=== PATIENT | female | born 1985 | race Two or more races ===

== ENCOUNTER 2024-10-05 08:30 | Inpatient (IN) | payer MEDICAID, OTHER ==
[~2024-10-05] VITALS: Ht 152.4 cm; Wt 81.7 kg
--- NOTE | 2024-10-05 09:41 | ED.PDOC ---
GI ASSESSMENT HPI Comments 39 y/o F, presents to the ED for CC of GI Bleed. Patient states, she has been experiencing bright red bloody stool with associated symptoms of suprapubic abdominal cramping x2days. Patient reports, that bleeding quality has lighted however, has not yet ceased. Patient comments, that she received a colonoscopy [id number] ago which was unremarkable. Patient denies dysuria, nausea, vomiting, or diarrhea. No other symptoms or modifying factors present at this time. Chief Complaint: GI Bleed Time Seen by MD: 09:20 Reviewed Notes: Nurses Notes, Medications, Allergies Allergies: Coded Allergies: NO KNOWN ALLERGIES (Unverified , 10/05/24) Mode of Arrival: Ambulatory Timing: Days Duration: Since onset Prehospital treatment: None Quality: Cramping Vomitus: None Stool: Blood Streaked Severity: Moderate Recent: None Recent Hx of: None Pain Location: Suprapubic Modifying Factors: Nothing Associated sign and symptoms: Abdominal Pain, Blood in Stool Past Medical History PAST MEDICAL HISTORY: Denies Surgical History: Denies all surgeries IRONER HAND History: Denies all IRONER HAND Hx Family History Family History: Unknown Social History Smoker: Non-Smoker Alcohol: Denies ETOH Use Drugs: Denies Drug Use Lives In: Home Constitutional: denies: chills, diaphoresis, fatigue, fever, malaise, sweats, weakness, others EENTM: denies: blurred vision, double vision, ear bleeding, ear discharge, ear drainage, ear pain, ear ringing, eye pain, eye redness, hearing loss, mouth pain, mouth swelling, nasal discharge, nose bleeding, nose congestion, nose pain, photophobia, tearing, throat pain, throat swelling, voice changes, others Respiratory: denies: cough, hemoptysis, orthopnea, SOB at rest, shortness of breath, SOB with excertion, stridor, wheezing, others Cardiovascular: denies: chest pain, dizzy spells, diaphoresis, Dyspnea on exertion, edema, irregular heart beat, left arm pain, lightheadedness, palpitations, PND, syncope, others Gastrointestinal: reports: abdominal pain, blood streaked bowels; denies: abdomen distended, constipated, diarrhea, dysphagia, difficulty swallowing, hematemesis, melena, nausea, poor appetite, poor fluid intake, rectal bleeding, rectal pain, vomiting, others Genitourinary: denies: abnormal vagina bleeding, burning, dyspareunia, dysuria, flank pain, frequency, hematuria, incontinence, pain, , vagina discharge, urgency, others Neurological: denies: dizziness, fainting, headache, left sided numbness, left sided weakness, numbness, paresthesia, pre-existing deficit, right sided numbness, right sided weakness, seizure, speech problems, tingling, tremors, weakness, others Musculoskeletal: denies: back pain, gout, joint pain, joint swelling, muscle pain, muscle stiffness, neck pain, others Integumetry: denies: bruises, change in color, change in hair/nails, dryness, laceration, lesions, lumps, rash, wounds, others Allergic/Immunocompromised: denies: Difficulty Healing, Frequent Infections, Hives, Itching, others Hematologic/Lymphatic: denies: anemia, blood clots, easy bleeding, easy bruising, swollen glands, others Endocrine: denies: excessive hunger, excessive sweating, excessive thirst, excessive urination, flushing, intolerance to cold, intolerance to heat, unexplained weight gain, unexplained weight loss, others Psychiatric: denies: anxiety, bipolar disorder, depression, hopeless, panic disorder, schizophrenia, sleepless, suicidal, others All Other Systems: Reviewed and Negative Physical Exam General Appearance: No Apparent Distress, Normal HEENT: Normal ENT Inspection, Pharynx Normal Neck: Full Range of Motion, Non-Tender, Normal, Normal Inspection Respiratory: Chest Non-Tender, Lungs Clear, No Accessory Muscle Use, No Respiratory Distress, Normal Breath Sounds Cardiovascular: No Edema, No Murmur, No Gallop, Normal Peripheral Pulses, Regular Rate/Rhythm Breast Exam: Deferred Gastrointestinal: No Organomegaly, Non Tender, No Pulsatile Mass, Normal Bowel Sounds, Soft Genitalia: Deferred Pelvic: Deferred Rectal: Deferred Extremities: No calf tenderness, Normal capillary refill, Normal inspection, Normal range of motion, Non-tender, No pedal edema Musculoskeletal : Apperance: Normal Neurologic: Alert, resistor winder II-XII nml as Tested, No Motor Deficits, Normal Affect, Normal Mood, No Sensory Deficits Cerebellar Function: Normal Reflexes: Normal Skin: Dry, Normal Color, Warm Lymphatic: No Adenopathy Was a procedure done? Was a procedure done?: No GI differential Dx Differential Diagnosis: Diverticular disease, Gastritis/PUD, Gastroenteritis, GI hemorrhage, Inflammatory BD X-Ray, Labs, Meds, VS Vital Signs Date Time Temp Pulse Resp B/P (MAP) Pulse Ox O2 Delivery O2 Flow Rate FiO2 10/05/24 11:12 75 18 143/85 10/05/24 10:42 75 17 143/85 10/05/24 10:36 97.8 75 17 143/85 (104) 100 97.8 10/05/24 10:26 18 98 Room Air* 0 21 10/05/24 08:34 98.1 93 13 142/79 99 98.1 Lab Test 10/05/24 10:26 10/05/24 09:40 Range/Units Urine Color Light-yellow Yellow Urine Clarity Clear Clear Urine pH 6.5 5.0-9.0 Urine Specific [place] > 1.050 H 1.001-1.035 Urine Protein Negative Negative Urine Ketones Negative Negative Urine Blood Negative Negative /uL Urine Nitrite Negative Negative Urine Bilirubin Negative Negative Urine Urobilinogen Normal Negative mg/dL Urine Leukocyte Esterase Negative Negative /uL Urine RBC 2 0 - 4 /hpf Urine Microscopic WBC < 1 0-5 /HPF Urine Squamous Epithelial Cells Few <5 /hpf Urine Bacteria None seen None Seen /hpf Urine Glucose Normal Normal mg/dL White Blood Count 6.2 4.4-10.8 10^3/uL Red Blood Count 4.27 4.0-5.20 10^6/uL Hemoglobin 13.5 12.2-16.2 g/dL Hematocrit 39.8 36.0-46.0 % Mean Corpuscular Volume 93.1 80.0-100.0 fL Mean Corpuscular Hemoglobin 31.6 28.0-32.0 pg Mean Corpuscular Hemoglobin Concent 34.0 32.0-36.0 g/dL Red Cell Distribution Width 13.1 11.8-14.3 % Platelet Count 197 140-450 10^3/uL Mean Platelet Volume 9.1 6.9-10.8 fL Neutrophils (%) (Auto) 59.6 37.0-80.0 % Lymphocytes (%) (Auto) 28.3 10.0-50.0 % Monocytes (%) (Auto) 6.7 0.0-12.0 % Eosinophils (%) (Auto) 4.7 0.0-7.0 % Basophils (%) (Auto) 0.7 0.0-2.0 % Neutrophils # (Auto) 3.7 1.6-8.6 10 ^3/uL Lymphocytes # (Auto) 1.8 0.4-5.4 10 ^3/uL Monocytes # (Auto) 0.4 0-1.3 10 ^3/uL Eosinophils # (Auto) 0.3 0-0.8 10 ^3/uL Basophils # (Auto) 0 0-0.2 10 ^3/uL Nucleated Red Blood Cells 0.0 % Sodium Level 139 136-145 mmol/L Potassium Level 4.0 3.5-5.1 mmol/L Chloride Level 105 98-107 mmol/L Carbon Dioxide Level 28 20-31 mmol/L Anion Gap 6 5-15 Blood Urea Nitrogen 8 L 9-23 mg/dL Creatinine 0.79 0.550-1.02 mg/dL Glomerular Filtration Rate Calc 99 >90 mL/min BUN/Creatinine Ratio 10.1 10.0-20.0 Serum Glucose 86 74-106 mg/dL Calcium Level 9.0 8.7-10.4 mg/dL Current Medications Medications (Trade) Dose Ordered Sig/Otilia Route Start Time Stop Time Status Last Admin Sodium Chloride 1,000 ml @ 1,000 mls/hr Q1H ONCE IV 10/05/24 09:30 10/05/24 10:29 DC 10/05/24 10:40 Ondansetron HCl (Zofran) 4 mg ONCE ONCE IV 10/05/24 09:30 10/05/24 09:31 DC 10/05/24 10:42 Morphine Sulfate 4 mg ONCE ONCE IV 10/05/24 09:30 10/05/24 09:31 DC 10/05/24 10:42 Pantoprazole Sodium (Protonix) 80 mg ONCE ONCE IV 10/05/24 09:30 10/05/24 09:31 DC 10/05/24 10:42 [place] [address] Ph: [phone] DIAGNOSTIC IMAGING Diagnostic Imaging Report : [id number] Signed PATIENT: JOANNE JIMENEZ ACCT: [id number] UNIT: [id number] : 1985 LOC: ER ROOM / BED: / AGE / SEX: 39 / F ADM STATUS: REG ER SERVICE 7 ORDERING PHYSICIAN: EDWIGE MENDOZA MD PROCEDURE(s): ABPLIV - CT AB PEL WITH IV CON ONLY REASON: abdominal pain ORDER NUMBER(s): [id number], ACCESSION NUMBER(s): [id number] Exam: CT CT AB PEL WITH IV CON ONLY History: abdominal pain COMPARISON: None Technique: Multidetector spiral CT of the abdomen and pelvis was performed from lung bases to pubic symphysis. Intravenous contrast was administered during this examination. Portal venous imaging was obtained. Axial, coronal and sagittal multiplanar reformats were performed by the technologist on a separate workstation. Radiation Dose : 1. Abdomen/Pelvis: CTDIvol 12.41mGy, DLP 599.62 mGy*cm. Findings: Lung Bases: No acute or significant lung base finding. Normal heart size. No pleural or pericardial effusion. Liver: Hepatomegaly. Gallbladder and Biliary Tree: Unremarkable Spleen: Unremarkable Pancreas: The pancreas is normal in appearance without focal lesions or abnormal enhancement. Adrenal Glands: Unremarkable Kidneys: No hydronephrosis. Bladder: Unremarkable Bowel: The stomach is grossly normal in appearance. Moderate colonic stool. Normal appendix is visualized in the right lower quadrant without findings of appendicitis. Ascites: Absent Lymphadenopathy: No mesenteric, retroperitoneal or periportal lymphadenopathy. Abdominal Wall and Mesentery: Unremarkable. Vasculature: The visualized abdominal aorta is normal in size and caliber. Abdominal and pelvic vessels demonstrate normal enhancement. Pelvic Organs: Intrauterine device in satisfactory position. Musculoskeletal: No aggressive focal bony lesions, acute fractures or dislocation. IMPRESSION: No acute abdominal or pelvic finding. Radiation optimization: All CT scans at this facility use at least one of these dose optimization techniques: automated exposure control mA and/or kV adjustment per patient size (includes targeted exams where dose is matched to clinical indication) or iterative reconstruction. ATED BY: ARMIN YUEN MD DICTATED DATE/TIME: 10/05/241115 SIGNED BY: ARMIN YUEN MD SIGNED DATE/TIME: 10/05/24 111 CC: Time of 1ST Reevaluation: 09:50 Reevaluation 1ST: Unchanged Patient Education/Counseling: Diagnosis, Treatment Family Education/Counseling: No Family Present SEPSIS Sepsis Screen Date sepsis recognized/suspect: Oct 05, 2024 Time Sepsis recognized/suspect: 0834 Recent Procedure: No On Antibiotic Therapy: No Respiratory Rate >20: No Heart Rate >90: Yes Temp<36 C (96.8 F) or >38.3 C: No SBP <90 or MAP <65 mmHG: No New Acute Mental Status Change: No Is the patient on CPAP, BIPAP,: No Physician Orders Ct Ab Pel With Iv Con Only (10/05/24 09:18) Vital Signs Date Time Temp Pulse Resp B/P (MAP) Pulse Ox O2 Delivery O2 Flow Rate FiO2 10/05/24 11:12 75 18 143/85 10/05/24 10:42 75 17 143/85 10/05/24 10:36 97.8 75 17 143/85 (104) 100 97.8 10/05/24 10:26 18 98 Room Air* 0 21 10/05/24 08:34 98.1 93 13 142/79 99 98.1 Laboratory Tests Test 10/05/24 09:40 White Blood Count 6.2 10^3/uL (4.4-10.8) Medications Medications Dose Ordered Sig/Otilia Route Start Time Stop Time Status Last Admin Dose Admin Morphine Sulfate 4 mg ONCE ONCE IV 10/05/24 09:30 10/05/24 09:31 DC 10/05/24 10:42 Ondansetron HCl 4 mg ONCE ONCE IV 10/05/24 09:30 10/05/24 09:31 DC 10/05/24 10:42 Pantoprazole Sodium 80 mg ONCE ONCE IV 10/05/24 09:30 10/05/24 09:31 DC 10/05/24 10:42 Sodium Chloride 1,000 ml @ 1,000 mls/hr Q1H ONCE IV 10/05/24 09:30 10/05/24 10:29 DC 10/05/24 10:40 Departure 1 Departure Time of Disposition: 17:26 (Patient with GI bleed. We will admit patient for further workup and expert consultation) Impression: Primary Impression: Bright red blood per rectum Additional Impression: Generalized weakness Disposition: ADMITTED INPATIENT Admit to: [facility] Condition: Guarded Critical Care Note Critical Care Time?: Yes Critical care comment: GI bleed Authorized and Performed by: Edwige Mendoza MD Total critical care time: Approximately 37 minutes Due to a high probability of clinically significant, life threatening deterioration, the patient required my highest level of preparedness to intervene emergently and I personally spent this critical care time directly and personally managing the patient. This critical care time included obtaining a history; examining the patient; pulse oximetry; ordering and review of studies; arranging urgent treatment with development of a management plan; evaluation of patient's response to treatment; frequent reassessment; and, discussions with other providers. This critical care time was performed to assess and manage the high probability of imminent, life-threatening deterioration that could result in multi-organ failure. It was exclusive of separately billable procedures and treating other patients and teaching time. Please see my other sections and the rest of the note for further information on patient assessment and treatment. Stability Stability form required: No Heart Score Heart Score: Heart Score Response (Comments) Value History N/A 0 EKG N/A 0 Age N/A 0 Risk Factors N/A 0 Troponin N/A 0 Total 0 I personally scribed for EDWIGE MENDOZA MD ([email or web address]) on 10/05/24 at 09:41. Electronically submitted by Tatiana Weinberg ([email or web address]). I personally scribed for EDWIGE MENDOZA MD ([email or web address]) on 10/05/24 at 11:21. Electronically submitted by Tatiana Weinberg ([email or web address]). EDWIGE MENDOZA MD Oct 05, 2024 09:41
[2024-10-05 10:14] LABS: Hematocrit 39.8 % (36.0-46.0); Hemoglobin 13.5 g/dL (12.2-16.2); Mean Corpuscular Hemoglobin 31.6 pg (28.0-32.0); Mean Corpuscular Volume 93.1 fL (80.0-100.0); Nucleated Red Blood Cells % 0.0 %
[2024-10-05 10:17] LABS: Chloride 105 mmol/L (98-107); Potassium 4.0 mmol/L (3.5-5.1); Sodium 139 mmol/L (136-145)
[2024-10-05 10:18] LABS: Anion Gap 6 (5-15); Carbon Dioxide 28 mmol/L (20-31)
[2024-10-05 10:19] LABS: Calcium 9.0 mg/dL (8.7-10.4)
[2024-10-05 10:24] LABS: BUN/Creatinine Ratio 10.1 (10.0-20.0); Glucose 86 mg/dL (74-106)
[2024-10-05 10:25] LABS: Blood Urea Nitrogen 8 mg/dL (9-23)
[2024-10-05 10:26] VITALS: RESP 18; O2SAT 98
[2024-10-05] MEDS: SODIUM CHLORIDE 0.9% 1,000 ML IV ONE (10:40)
[2024-10-05] MEDS: PANTOPRAZOLE 40 MG/10 ML VIAL INJ IV ONE (10:42)
[2024-10-05] MEDS: MORPHINE SULFATE 4 MG/ML SYR/VIAL IV ONE (10:42)
[2024-10-05] MEDS: ONDANSETRON HCL 4 MG/2 ML VIAL IV ONE (10:42)
--- NOTE | 2024-10-05 11:19 | DVH ---
Exam: CT CT AB PEL WITH IV CON ONLY History: abdominal pain COMPARISON: None Technique: Multidetector spiral CT of the abdomen and pelvis was performed from lung bases to pubic s ymphysis. Intravenous contrast was administered during this examination. Portal venous imaging was o btained. Axial, coronal and sagittal multiplanar reformats were performed by the technologist on a [employer] computer workstation. Radiation Dose : 1. Abdomen/Pelvis: CTDIvol 12.41mGy, DLP 599.62 mGy*cm. Findings: Lung Bases: No acute or significant lung base finding. Normal heart size. No pleural or pericardial effusion. Liver: Hepatomegaly. Gallbladder and Biliary Tree: Unremarkable Spleen: Unremarkable Pancreas: The pancreas is normal in appearance without focal lesions or abnormal enhancement. Adrenal Glands: Unremarkable Kidneys: No hydronephrosis. Bladder: Unremarkable Bowel: The stomach is grossly normal in appearance. Moderate colonic stool. Normal appendix is visual ized in the right lower quadrant without findings of appendicitis. Ascites: Absent Lymphadenopathy: No mesenteric, retroperitoneal or periportal lymphadenopathy. Abdominal Wall and Mesentery: Unremarkable. Vasculature: The visualized abdominal aorta is normal in size and caliber. Abdominal and pelvic vess els demonstrate normal enhancement. Pelvic Organs: Intrauterine device in satisfactory position. Musculoskeletal: No aggressive focal bony lesions, acute fractures or dislocation. IMPRESSION: No acute abdominal or pelvic finding. Radiation optimization: All CT scans at this facility use at least one of these dose optimization maricarmen hniques: automated exposure control mA and/or kV adjustment per patient size (includes targeted exam s where dose is matched to clinical indication) or iterative reconstruction.
[2024-10-05 13:19] LABS: Urine Protein, UAD Negative (Negative)
[2024-10-05] MEDS ORDERED: ONDANSETRON HCL 4 MG/2 ML VIAL IV PRN (16:15)
[2024-10-05] MEDS ORDERED: ACETAMINOPHEN 325 MG TAB PO PRN (16:15)
[2024-10-05] MEDS: SODIUM CHLORIDE 0.9% 1,000 ML IV SCH (16:15)
[2024-10-05] MEDS ORDERED: METOCLOPRAMIDE HCL 5MG/ml INJ 2ml VIAL IV PRN (16:30)
--- NOTE | 2024-10-05 16:43 | DVHHP2 ---
History of Present Illness Reason for Visit: blood in stool History of Present Illness Anne-Marie Robles is a 39-year-old female with no significant past medical history who came to the hospital for blood in her stool. Patient states it started on Friday. She states she had 2 bowel movements that had bright red blood, on Friday she had 1 and today she has not had any. She also states that she is experiencing nausea, and abdominal pain that has been worsening over the last few days. Past Surgical History: (x 2), Other (abdominal surgery to remove scar tissue from the previous C-sections. ) Smoke: <1 pack per day (Vape) ALCOHOL: rare Drugs: Marijuana Lives: with Family Domestic Violence: Neg Review of Systems Constitutional: No: Fever, Chills, Sweats, Weakness, Malaise, Other Eyes: No: Pain, Vision change, Conjunctivae inflammation, Eyelid inflammation, Other, Redness ENT: No: Ear pain, Ear discharge, Nose pain, Nose discharge, Nose congestion, Mouth pain, Mouth swelling, Throat pain, Throat swelling, Other Respiratory: No: Cough, Dry, Shortness of breath, SOB with excertion, Wheezing, Hemoptysis, Pleuritic Pain, Sputum, Wheezing, Other Cardiovascular: No: Chest Pain, Palpitations, Orthopnea, Paroxysmal Noc. Dyspnea, Edema, Lt Headedness, Other Gastrointestinal: Abdominal Pain, Other (bright red blood in stool); No: Nausea, Vomiting, Diarrhea, Constipation, Melena, Hematochezia Genitourinary: No Dysuria, No Frequency, No Incontinence, No Hematuria, No Retention, No Other Musculoskeletal: No: other, neck pain, shoulder pain, arm pain, back pain, hand pain, leg pain, foot pain Skin: No: Rash, Lesions, Jaundice, Bruising, Other Neurological: No: Weakness, Numbness, Incoordination, Change in speech, Con fusion, Seizures, Other Allergies: Coded Allergies: NO KNOWN ALLERGIES (Unverified , 10/05/24) Medications Current Medications Medications Dose Ordered Sig/Otilia Route Start Time Stop Time Status Last Admin Dose Admin Sodium Chloride 1,000 ml @ 75 mls/hr [id number] IV 10/05/24 16:15 Acetaminophen/ Hydrocodone Bitart 1 tab Q4HP PRN PO 10/05/24 16:15 Ondansetron HCl 4 mg Q4HP PRN IV 8/12/25 16:15 Acetaminophen 650 mg Q6HP PRN PO 10/05/24 16:15 Morphine Sulfate 2 mg Q4HPRN PRN IV 10/05/24 16:15 Exam Vital Signs Vital Signs Date Time Temp Pulse Resp B/P (MAP) Pulse Ox O2 Delivery O2 Flow Rate FiO2 10/05/24 11:12 75 18 143/85 10/05/24 10:36 97.8 100 97.8 10/05/24 10:26 Room Air* 0 21 General Appearance: Alert, Oriented X3, Cooperative, mild distress HEENT: Atraumatic, PERRLA Respiratory: Clear to auscultation, Normal air movement Cardiovascular: Regular rate, Normal S1, Normal S2, No murmurs Abdominal: Normal bowel sounds, Soft, Other (abdominal pain) Extremities: No clubbing, No cyanosis, No edema, Normal pulses, No tende rness/swelling Skin: No rashes, No breakdown, No significant lesion Neuro: Normal gait, Normal speech, Strength at 5/5 X4 ext, Normal tone Psych/Mental Status: Mental status NL, Mood NL Labs/Xrays Labs Test 10/05/24 10:26 10/05/24 09:40 Range/Units Urine Color Light-yellow Yellow Urine Clarity Clear Clear Urine pH 6.5 5.0-9.0 Urine Specific [place] > 1.050 H 1.001-1.035 Urine Protein Negative Negative Urine Ketones Negative Negative Urine Blood Negative Negative /uL Urine Nitrite Negative Negative Urine Bilirubin Negative Negative Urine Urobilinogen Normal Negative mg/dL Urine Leukocyte Esterase Negative Negative /uL Urine RBC 2 0 - 4 /hpf Urine Microscopic WBC < 1 0-5 /HPF Urine Squamous Epithelial Cells Few <5 /hpf Urine Bacteria None seen None Seen /hpf Urine Glucose Normal Normal mg/dL White Blood Count 6.2 4.4-10.8 10^3/uL Red Blood Count 4.27 4.0-5.20 10^6/uL Hemoglobin 13.5 12.2-16.2 g/dL Hematocrit 39.8 36.0-46.0 % Mean Corpuscular Volume 93.1 80.0-100.0 fL Mean Corpuscular Hemoglobin 31.6 28.0-32.0 pg Mean Corpuscular Hemoglobin Concent 34.0 32.0-36.0 g/dL Red Cell Distribution Width 13.1 11.8-14.3 % Platelet Count 197 140-450 10^3/uL Mean Platelet Volume 9.1 6.9-10.8 fL Neutrophils (%) (Auto) 59.6 37.0-80.0 % Lymphocytes (%) (Auto) 28.3 10.0-50.0 % Monocytes (%) (Auto) 6.7 0.0-12.0 % Eosinophils (%) (Auto) 4.7 0.0-7.0 % Basophils (%) (Auto) 0.7 0.0-2.0 % Neutrophils # (Auto) 3.7 1.6-8.6 10 ^3/uL Lymphocytes # (Auto) 1.8 0.4-5.4 10 ^3/uL Monocytes # (Auto) 0.4 0-1.3 10 ^3/uL Eosinophils # (Auto) 0.3 0-0.8 10 ^3/uL Basophils # (Auto) 0 0-0.2 10 ^3/uL Nucleated Red Blood Cells 0.0 % Sodium Level 139 136-145 mmol/L Potassium Level 4.0 3.5-5.1 mmol/L Chloride Level 105 98-107 mmol/L Carbon Dioxide Level 28 20-31 mmol/L Anion Gap 6 5-15 Blood Urea Nitrogen 8 L 9-23 mg/dL Creatinine 0.79 0.550-1.02 mg/dL Glomerular Filtration Rate Calc 99 >90 mL/min BUN/Creatinine Ratio 10.1 10.0-20.0 Serum Glucose 86 74-106 mg/dL Calcium Level 9.0 8.7-10.4 mg/dL Exam: CT CT AB PEL WITH IV CON ONLY Findings: Lung Bases: No acute or significant lung base finding. Normal heart size. No pleural or pericardial effusion. Liver: Hepatomegaly. Gallbladder and Biliary Tree: Unremarkable Spleen: Unremarkable Pancreas: The pancreas is normal in appearance without focal lesions or abnormal enhancement. Adrenal Glands: Unremarkable Kidneys: No hydronephrosis. Bladder: Unremarkable Bowel: The stomach is grossly normal in appearance. Moderate colonic stool. Normal appendix is visualized in the right lower quadrant without findings of appendicitis. Ascites: Absent Lymphadenopathy: No mesenteric, retroperitoneal or periportal lymphadenopathy. Abdominal Wall and Mesentery: Unremarkable. Vasculature: The visualized abdominal aorta is normal in size and caliber. Abdominal and pelvic vessels demonstrate normal enhancement. Pelvic Organs: Intrauterine device in satisfactory position. Musculoskeletal: No aggressive focal bony lesions, acute fractures or dislocation. IMPRESSION: No acute abdominal or pelvic finding. SEPSIS Sepsis Screen Date sepsis recognized/suspect: Oct 05, 2024 Time Sepsis recognized/suspect: 1028 Recent Procedure: No On Antibiotic Therapy: No Respiratory Rate >20: No Heart Rate >90: No Temp<36 C (96.8 F) or >38.3 C: No SBP <90 or MAP <65 mmHG: No New Acute Mental Status Change: No Is the patient on CPAP, BIPAP,: No Physician Orders Ct Ab Pel With Iv Con Only (10/05/24 09:18) Admit (10/05/24 16:15) Code Status (10/05/24 16:15) Sodium Chloride 0.9% (10/05/24 16:15) Hydrocodone-Acet 5/325mg Tab ([place] 5/32 (10/05/24 16:15) Ondansetron Hcl (Zofran) (10/05/24 16:15) Complete Blood Count (10/06/24 04:00) Comprehensive Metabolic Panel (10/06/24 04:00) Condition: Serious (10/05/24 16:15) Acetaminophen Tablet (Tylenol Tablet) (10/05/24 16:15) Clear Liq Diet (10/05/24 Dinner) Morphine Sulfate Injection (10/05/24 16:15) * Gi Dvh Heating Mechanic (10/05/24 16:15) Vital Signs Date Time Temp Pulse Resp B/P (MAP) Pulse Ox O2 Delivery O2 Flow Rate FiO2 10/05/24 11:12 75 18 143/85 10/05/24 10:42 75 17 143/85 10/05/24 10:36 97.8 75 17 143/85 (104) 100 97.8 10/05/24 10:26 18 98 Room Air* 0 21 10/05/24 08:34 98.1 93 13 142/79 99 98.1 Laboratory Tests Test 10/05/24 09:40 White Blood Count 6.2 10^3/uL (4.4-10.8) Medications Medications Dose Ordered Sig/Otilia Route Start Time Stop Time Status Last Admin Dose Admin Morphine Sulfate 4 mg ONCE ONCE IV 10/05/24 09:30 10/05/24 09:31 DC 10/05/24 10:42 4 MG Ondansetron HCl 4 mg ONCE ONCE IV 10/05/24 09:30 10/05/24 09:31 DC 10/05/24 10:42 4 MG Pantoprazole Sodium 80 mg ONCE ONCE IV 10/05/24 09:30 10/05/24 09:31 DC 10/05/24 10:42 80 MG Sodium Chloride 1,000 ml @ 1,000 mls/hr Q1H ONCE IV 10/05/24 09:30 10/05/24 10:29 DC 10/05/24 10:40 1,000 MLS/HR Assessment/Plan Assessment/Plan Assessment: GI bleeding, Intractable abdominal pain, Plan: Admit to Med-Surg, GI consult, Clear liquid diet, IV hydration, Pain management, Antiemetics, Mange/Monitor H&H closely, Plan discussed with: Patient My Orders Orders - SUSIE CABALLERO Procedure Category Date Status Time Admit ADMIT 10/05/24 Transmitted 16:15 Code Status CODE 10/05/24 Transmitted 16:15 Sodium Chloride 0.9% PHA 10/05/24 In Process 16:15 Hydrocodone-Acet PHA 10/05/24 In Process 5/325mg Tab (Heber 16:15 Ondansetron Hcl PHA 10/05/24 In Process (Zofran) 16:15 Complete Blood Count LAB 10/06/24 Verified 04:00 Comprehensive LAB 10/06/24 Verified Metabolic Panel 04:00 Condition: Serious KIM 10/05/24 In Process 16:15 Acetaminophen Tablet PHA 10/05/24 In Process (Tylenol Tablet) 16:15 Clear Liq Diet DIET 10/05/24 Transmitted Dinner Morphine Sulfate PHA 10/05/24 In Process Injection 16:15 * Gi Dvh Heating Mechanic CONS 10/05/24 Transmitted 16:15 Date of Service: Oct 05, 2024 Billing Provider: SUSIE CABALLERO Common Visit Codes: 32288-[id number] INP/OBS CARE (MOD) SUSIE CABALLERO Oct 05, 2024 16:43
[2024-10-05 21:00] VITALS: BP 135/79; PULSE 75; RESP 18; TEMP 97.8; O2SAT 100
[2024-10-05] MEDS: MORPHINE SULFATE INJ 2 MG/ml SYRG IV PRN (21:14)
[2024-10-05 21:28] VITALS: PULSE 87; RESP 18; O2SAT 97
[2024-10-06] VITALS (8 sets, daily range): BP systolic 113–141; BP diastolic 60–88; PULSE 66–78; RESP 18–19; TEMP 97.1–98.1; O2SAT 97–100
[2024-10-06 06:04] LABS: Hematocrit 36.9 % (36.0-46.0); Hemoglobin 12.5 g/dL (12.2-16.2); Mean Corpuscular Hemoglobin 31.3 pg (28.0-32.0); Mean Corpuscular Volume 92.7 fL (80.0-100.0); Nucleated Red Blood Cells % 0.0 %
[2024-10-06 06:31] LABS: Albumin 3.6 g/dL (3.2-4.8); Alkaline Phosphatase 76 U/L (46-116); Anion Gap 10 (5-15); BUN/Creatinine Ratio 9.2 (10.0-20.0); Carbon Dioxide 24 mmol/L (20-31); Glucose 82 mg/dL (74-106); Sodium 141 mmol/L (136-145)
[2024-10-06 06:32] LABS: Bilirubin, Total 0.5 mg/dL (0.2-1.0)
[2024-10-06 06:34] LABS: Alanine Aminotransferase < 9 U/L (7-40); Blood Urea Nitrogen 7 mg/dL (9-23); Calcium 8.4 mg/dL (8.7-10.4); Chloride 107 mmol/L (98-107); Potassium 3.3 mmol/L (3.5-5.1); Total Protein 5.6 g/dL (5.7-8.2)
[2024-10-06] MEDS: HYDROcodone-ACET 5/325MG TAB PO PRN (12:19)
--- NOTE | 2024-10-06 15:34 | DVHPN2 ---
Subjective Patient is complaining of blood in his stool x2. Denies any abdominal pain nausea and vomiting. Changes from previous H/P or p: No Changes Eyes: No Pain, No Vision change, No Conjunctivae inflammation, No Eyelid inflammation, No Other, No Redness ENT: No Ear pain, No Ear discharge, No Nose pain, No Nose discharge, No Nose congestion, No Mouth pain, No Mouth swelling, No Throat pain, No Throat swelling, No Other Cardiovascular: No Chest Pain, No Palpitations, No Orthopnea, No Paroxysmal Noc. Dyspnea, No Edema, No Lt Headedness, No Other Respiratory: No Cough, No Dry, No Shortness of breath, No SOB with excertion, No Wheezing, No Hemoptysis, No Pleuritic Pain, No Sputum, No Other Gastrointestinal: No Nausea, No Vomiting; Abdominal Pain; No Diarrhea, No Constipation, No Melena, No Hematochezia; Other (bright red blood in stool) Genitourinary: No Dysuria, No Frequency, No Incontinence, No Hematuria, No Retention, No Other Musculoskeletal: No other, No neck pain, No shoulder pain, No arm pain, No back pain, No hand pain, No leg pain, No foot pain Skin: No Rash, No Lesions, No Jaundice, No Bruising, No Other Objective Vitals Vital Signs Date Time Temp Pulse Resp B/P (MAP) Pulse Ox O2 Delivery O2 Flow Rate FiO2 10/06/24 13:00 97.1 73 19 141/88 (105) 100 97.1 10/05/24 21:28 Room Air* 0 21 Intake/Output Intake and Output 10/06/24 07:00 Intake Total 1440 ml Balance 1440 ml Intake Oral 440 ml IV Total 1000 ml Exam HEENT pupils are reactive Neck is supple CV is S1-S2 regular rate and rhythm Respiratory diminished breath sounds bases GI positive bowel sound Extremity no edema [employer]IROP[employer] no motor deficit Medications Current Medications Medications Dose Ordered Sig/Otilia Route Start Time Stop Time Status Last Admin Dose Admin Sodium Chloride 1,000 ml @ 75 mls/hr [id number] IV 10/05/24 16:15 Acetaminophen/ Hydrocodone Bitart 1 tab Q4HP PRN PO 10/05/24 16:15 10/06/24 12:19 1 TAB Ondansetron HCl 4 mg Q4HP PRN IV 10/05/24 16:15 Acetaminophen 650 mg Q6HP PRN PO 10/05/24 16:15 Morphine Sulfate 2 mg Q4HPRN PRN IV 10/05/24 16:15 10/06/24 05:29 2 MG Metoclopramide HCl 10 mg Q6HPRN PRN IV 10/05/24 16:30 Laboratory Results Laboratory Tests 10/06/24 05:24 Chemistry Test 10/06/24 05:24 Albumin 3.6 g/dL (3.2-4.8) Calcium Level 8.4 mg/dL (8.7-10.4) L Total Protein 5.6 g/dL (5.7-8.2) L LFT Test 10/06/24 05:24 Alanine Aminotransferase (ALT) < 9 U/L (7-40) Alkaline Phosphatase 76 U/L (46-116) Aspartate Amino Transferase (AST) 12 U/L (13-40) L Total Bilirubin 0.5 mg/dL (0.2-1.0) Urinalysis Test 10/05/24 10:26 Urine Color Light-yellow (Yellow) Urine Clarity Clear (Clear) Urine pH 6.5 (5.0-9.0) Urine Specific [place] > 1.050 (1.001-1.035) Urine Protein Negative (Negative) Urine Ketones Negative (Negative) Urine Blood Negative /uL (Negative) Urine Nitrite Negative (Negative) Urine Bilirubin Negative (Negative) Urine Urobilinogen Normal mg/dL (Negative) Urine Leukocyte Esterase Negative /uL (Negative) Urine RBC 2 /hpf (0 - 4) Urine Microscopic WBC < 1 /HPF (0-5) Urine Squamous Epithelial Cells Few /hpf (<5) Urine Bacteria None seen /hpf (None Seen) Urine Glucose Normal mg/dL (Normal) Assessment/Plan Assessment/Plan 39-year-old female with a no significant past medical history presented to the hospital with a suprapubic pain some nausea and bright red blood per stool found to have 1. Bright red blood in stool 2. Suprapubic pain 3. Nausea, resolved -clear liquid diet as tolerated, GI consultation, hemoglobin and hematocrit is stable. -CT abdomen and pelvis was reviewed which shows no evidence of any acute pathology. Plan discussed with: Patient Date of Service: Oct 06, 2024 Billing Provider: CLARE ODOM MD Common Visit Codes: [id number] INP/OBS CARE(MOD) CLARE ODOM MD Oct 06, 2024 15:34
--- NOTE | 2024-10-06 22:44 | DVHINCON2 ---
Date of service: Oct 06, 2024 Referring Physician Danielle Padilla Reason for Consultation Rectal bleeding History of Present Illness Anne-Marie Robles is a 39-year-old female with no significant past medical history who came to the hospital for blood in her stool. Patient states it started on Friday. She states she had 2 bowel movements that had bright red blood, on Friday she had 1 and today she has not had any. She also states that she is experiencing nausea, and some lower abdominal pain that has been worsening over the last few days. Patient was seen at bedside currently in no acute distress Patient stated she had a colonoscopy about two years in [place] and she fatou eves the test results were negative Past Medical History None Past Surgical History Past Surgical History: (x 2), Other (abdominal surgery to remove scar tissue from the previous C-sections. ) Family History: Patient reports no known family medical history. Social History Smoke: <1 pack per day (Vape) ALCOHOL: rare Drugs: Marijuana Lives: with Family Allergies: Coded Allergies: NO KNOWN ALLERGIES (Unverified , 10/05/24) Vital Signs Vital Signs Date Time Temp Pulse Resp B/P (MAP) Pulse Ox O2 Delivery O2 Flow Rate FiO2 10/06/24 21:00 97.7 75 18 116/85 (95) 99 97.7 10/06/24 17:54 Room Air* 0 21 Physical Exam General Appearance: Alert, Oriented X3, Cooperative, no distress HEENT: Atraumatic, PERRLA Respiratory: Clear to auscultation, Normal air movement Cardiovascular: Regular rate, Normal S1, Normal S2, No murmurs Abdominal: Normal bowel sounds, Soft, Other (abdominal pain) Extremities: No clubbing, No cyanosis, No edema, Normal pulses, No tenderness/swelling Skin: No rashes, No breakdown, No significant lesion Neuro: Normal gait, Normal speech, Strength at 5/5 X4 ext, Normal tone Psych/Mental Status: Mental status NL, Mood NL Labs/Diagnostic Data Labs Test 10/06/24 05:24 10/05/24 10:26 Range/Units White Blood Count 7.3 4.4-10.8 10^3/uL Red Blood Count 3.99 L 4.0-5.20 10^6/uL Hemoglobin 12.5 12.2-16.2 g/dL Hematocrit 36.9 36.0-46.0 % Mean Corpuscular Volume 92.7 80.0-100.0 fL Mean Corpuscular Hemoglobin 31.3 28.0-32.0 pg Mean Corpuscular Hemoglobin Concent 33.8 32.0-36.0 g/dL Red Cell Distribution Width 13.1 11.8-14.3 % Platelet Count 170 140-450 10^3/uL Mean Platelet Volume 8.7 6.9-10.8 fL Neutrophils (%) (Auto) 57.2 37.0-80.0 % Lymphocytes (%) (Auto) 31.3 10.0-50.0 % Monocytes (%) (Auto) 6.9 0.0-12.0 % Eosinophils (%) (Auto) 4.2 0.0-7.0 % Basophils (%) (Auto) 0.4 0.0-2.0 % Neutrophils # (Auto) 4.1 1.6-8.6 10 ^3/uL Lymphocytes # (Auto) 2.3 0.4-5.4 10 ^3/uL Monocytes # (Auto) 0.5 0-1.3 10 ^3/uL Eosinophils # (Auto) 0.3 0-0.8 10 ^3/uL Basophils # (Auto) 0 0-0.2 10 ^3/uL Nucleated Red Blood Cells 0.0 % Sodium Level 141 136-145 mmol/L Potassium Level 3.3 L 3.5-5.1 mmol/L Chloride Level 107 98-107 mmol/L Carbon Dioxide Level 24 20-31 mmol/L Anion Gap 10 5-15 Blood Urea Nitrogen 7 L 9-23 mg/dL Creatinine 0.76 0.550-1.02 mg/dL Glomerular Filtration Rate Calc 103 >90 mL/min BUN/Creatinine Ratio 9.2 L 10.0-20.0 Serum Glucose 82 74-106 mg/dL Calcium Level 8.4 L 8.7-10.4 mg/dL Total Bilirubin 0.5 0.2-1.0 mg/dL Aspartate Amino Transferase (AST) 12 L 13-40 U/L Alanine Aminotransferase (ALT) < 9 7-40 U/L Alkaline Phosphatase 76 46-116 U/L Total Protein 5.6 L 5.7-8.2 g/dL Albumin 3.6 3.2-4.8 g/dL Urine Color Light-yellow Yellow Urine Clarity Clear Clear Urine pH 6.5 5.0-9.0 Urine Specific [place] > 1.050 H 1.001-1.035 Urine Protein Negative Negative Urine Ketones Negative Negative Urine Blood Negative Negative /uL Urine Nitrite Negative Negative Urine Bilirubin Negative Negative Urine Urobilinogen Normal Negative mg/dL Urine Leukocyte Esterase Negative Negative /uL Urine RBC 2 0 - 4 /hpf Urine Microscopic WBC < 1 0-5 /HPF Urine Squamous Epithelial Cells Few <5 /hpf Urine Bacteria None seen None Seen /hpf Urine Glucose Normal Normal mg/dL CT SCAN ABD PELVIS IMPRESSION: No acute abdominal or pelvic finding. Problems(with codes): (1) Suprapubic abdominal pain (2) Bright red blood per rectum (3) Generalized weakness (4) GI bleeding Plan/Recommendation Plan Patient appears to be stable with no further GI bleeding Her H&H is stable and CT scan abdomen pelvis is negative I would recommend conservative observation for now and advance diet as tolerated, patient had a negative colonoscopy two years ago If her labs are stable and she has no further significant bleeding we can possibly consider outpatient elective colonoscopy Plan discussed with: Patient, Other (Nurse) ALICIA MARTINS MD Oct 06, 2024 22:44
[2024-10-07 05:00] VITALS: BP 124/91; PULSE 79; RESP 17; TEMP 98.1; O2SAT 100
[2024-10-07 08:00] VITALS: PULSE 85; RESP 18; O2SAT 98
[2024-10-07 08:15] LABS: Anion Gap 8 (5-15); Carbon Dioxide 26 mmol/L (20-31); Hematocrit 37.3 % (36.0-46.0); Hemoglobin 12.9 g/dL (12.2-16.2); Mean Corpuscular Hemoglobin 31.8 pg (28.0-32.0); Mean Corpuscular Volume 92.2 fL (80.0-100.0); Nucleated Red Blood Cells % 0.1 %; Sodium 141 mmol/L (136-145)
[2024-10-07 08:16] LABS: Calcium 8.7 mg/dL (8.7-10.4); Chloride 107 mmol/L (98-107); Potassium 3.3 mmol/L (3.5-5.1)
[2024-10-07 08:20] LABS: Glucose 82 mg/dL (74-106)
[2024-10-07 08:22] LABS: BUN/Creatinine Ratio 7.0 (10.0-20.0); Blood Urea Nitrogen < 5 mg/dL (9-23)
[2024-10-07 09:00] VITALS: BP 133/80; PULSE 85; RESP 18; TEMP 98.1; O2SAT 100
--- NOTE | 2024-10-07 13:56 | DVHDS2 ---
Discharge Summary Date of Admission Oct 05, 2024 at 16:15 Date of Discharge: Oct 07, 2024 Labs/Diagnostic Data: Laboratory Results Test 10/07/24 07:39 10/06/24 11:50 10/06/24 05:24 10/05/24 10:26 White Blood Count 6.8 10^3/uL (4.4-10.8) Red Blood Count 4.04 10^6/uL (4.0-5.20) Hemoglobin 12.9 g/dL (12.2-16.2) Hematocrit 37.3 % (36.0-46.0) Mean Corpuscular Volume 92.2 fL (80.0-100.0) Mean Corpuscular Hemoglobin 31.8 pg (28.0-32.0) Mean Corpuscular Hemoglobin Concent 34.5 g/dL (32.0-36.0) Red Cell Distribution Width 13.0 % (11.8-14.3) Platelet Count 184 10^3/uL (140-450) Mean Platelet Volume 9.0 fL (6.9-10.8) Neutrophils (%) (Auto) 61.6 % (37.0-80.0) Lymphocytes (%) (Auto) 27.8 % (10.0-50.0) Monocytes (%) (Auto) 7.8 % (0.0-12.0) Eosinophils (%) (Auto) 2.4 % (0.0-7.0) Basophils (%) (Auto) 0.4 % (0.0-2.0) Neutrophils # (Auto) 4.2 10 ^3/uL (1.6-8.6) Lymphocytes # (Auto) 1.9 10 ^3/uL (0.4-5.4) Monocytes # (Auto) 0.5 10 ^3/uL (0-1.3) Eosinophils # (Auto) 0.2 10 ^3/uL (0-0.8) Basophils # (Auto) 0 10 ^3/uL (0-0.2) Nucleated Red Blood Cells 0.1 % Sodium Level 141 mmol/L (136-145) Potassium Level 3.3 mmol/L (3.5-5.1) Chloride Level 107 mmol/L (98-107) Carbon Dioxide Level 26 mmol/L (20-31) Anion Gap 8 (5-15) Blood Urea Nitrogen < 5 mg/dL (9-23) Creatinine 0.71 mg/dL (0.550-1.02) Glomerular Filtration Rate Calc 112 mL/min (>90) BUN/Creatinine Ratio 7.0 (10.0-20.0) Serum Glucose 82 mg/dL (74-106) Calcium Level 8.7 mg/dL (8.7-10.4) Stool Occult Blood Negative (Negative) Stool Occult Blood Sample #3 (Negative) Total Bilirubin 0.5 mg/dL (0.2-1.0) Aspartate Amino Transferase (AST) 12 U/L (13-40) Alanine Aminotransferase (ALT) < 9 U/L (7-40) Alkaline Phosphatase 76 U/L (46-116) Total Protein 5.6 g/dL (5.7-8.2) Albumin 3.6 g/dL (3.2-4.8) Urine Color Light-yellow (Yellow) Urine Clarity Clear (Clear) Urine pH 6.5 (5.0-9.0) Urine Specific [address] > 1.050 (1.001-1.035) Urine Protein Negative (Negative) Urine Ketones Negative (Negative) Urine Blood Negative /uL (Negative) Urine Nitrite Negative (Negative) Urine Bilirubin Negative (Negative) Urine Urobilinogen Normal mg/dL (Negative) Urine Leukocyte Esterase Negative /uL (Negative) Urine RBC 2 /hpf (0 - 4) Urine Microscopic WBC < 1 /HPF (0-5) Urine Squamous Epithelial Cells Few /hpf (<5) Urine Bacteria None seen /hpf (None Seen) Urine Glucose Normal mg/dL (Normal) Other Laboratory Tests 10/07/24 07:39 Brief Hx & Hospital Course: 39-year-old female with a no significant past medical history presented to the hospital with a suprapubic pain some nausea and bright red blood per stool found to have suspected lower GI bleed. Patient was eventually admitted started on diet. CT abdomen and pelvis shows no evidence of acute pathology. GI evaluated the patient and recommended outpatient follow up in case she bleeds again. Patient is currently having normal bowel movements and denies any complaints. Patient is requesting to go home and she is stable to be discharged. Condition at Discharge: Stable Final Diagnosis/Problems List 39-year-old female with a no significant past medical history presented to the hospital with a suprapubic pain some nausea and bright red blood per stool found to have 1. Bright red blood in stool , hemoglobin stable, patient has a normal bowel movement. 2. Suprapubic pain , resolved CT abdomen and pelvis shows no evidence of any acute pathology. 3. Nausea, resolved Discharge Disposition: Home SNF Discharge Will this Physician continue t: No Discharge Instruct/Medications Diet: Regular Activity: No Restrictions, As Tolerated Follow Up/Referral: Follow up with the PCP in two three weeks. Medications: Resume home medications No Active Prescriptions or Reported Meds Discharge Statement: "Patient was advised to return to the ER or call 911 if any headaches, dizziness, shortness of breath, chest pain, abdominal pain, bleeding, fevers, or worsening of medical condition. Patient was counseled about treatment plan, medications, possible side effects, patientverbalized understanding. All questions were answered to the best of my ability. This discharge took greater then 30 minutes in planning, reviewing documentation, counseling the patient, and discussing with other team members." ASSESSMENT ASSESSMENT Assessment 39-year-old female with a no significant past medical history presented to the hospital with a suprapubic pain some nausea and bright red blood per stool found to have 1. Bright red blood in stool , hemoglobin stable, patient has a normal bowel movement. 2. Suprapubic pain , resolved CT abdomen and pelvis shows no evidence of any acute pathology. 3. Nausea, resolved Date of Service: Oct 07, 2024 Billing Provider: CLARE ODOM MD Common Visit Codes: 38714-[id number] DISCH DAY >30min CLARE ODOM MD Oct 07, 2024 13:56
[2024-10-07 14:05] VITALS: BP 132/86; PULSE 85; RESP 18; TEMP 98.6; O2SAT 99
[2024-10-07 14:21] VITALS: BP 132/86; PULSE 67; RESP 18; TEMP 98; O2SAT 99
--- NOTE | 2024-10-07 22:09 | DVHPN2 ---
Progress Note - Dictate Date Seen: Oct 07, 2024 (Late entry Patient seen at 10:00 a.m.) Medical Necessity Reason Pt with a Central, PICC or Fol: No Subjective No new complaints, patient is awake alert She has not had any further GI bleeding vital signs Vital Sign Date Time Temp Pulse Resp B/P (MAP) Pulse Ox O2 Delivery O2 Flow Rate FiO2 10/07/24 14:21 98.0 67 18 132/86 (101) 99 98.0 10/07/24 08:00 Room Air* 0 21 Total Intake and Output 10/06/24 10/06/24 10/07/24 15:00 23:00 07:00 Intake Total 658 ml Balance 658 ml objective General Appearance: Alert, Oriented X3, Cooperative, no distress HEENT: Atraumatic, PERRLA Respiratory: Clear to auscultation, Normal air movement Cardiovascular: Regular rate, Normal S1, Normal S2, No murmurs Abdominal: Normal bowel sounds, Soft, Other (abdominal pain) Extremities: No clubbing, No cyanosis, No edema, Normal pulses, No tenderness/swelling Skin: No rashes, No breakdown, No significant lesion Neuro: Normal gait, Normal speech, Strength at 5/5 X4 ext, Normal tone Psych/Mental Status: Mental status NL, Mood NL laboratory and microbiology Laboratory Tests 10/07/24 07:39 Test 10/07/24 07:39 Range/Units Serum Glucose 82 74-106 mg/dL Problems(with codes): (1) Constipation (2) Suprapubic abdominal pain (3) Bright red blood per rectum (4) Generalized weakness Prognosis Plan Advance diet as tolerated Continue supportive care GI bleeding is resolved then patient is stable for discharge from GI point of view She is advised follow up in my office in 4-6 weeks to discuss elective colonoscopy after reviewing her last colonoscopy report from the surgery Avoid aspirin NSAIDs smoking alcohol intake increase fluid and fiber intake Plan discussed with: Patient, Other (Nurse) ALICIA MARTINS MD Oct 07, 2024 22:09
== END 2024-10-07 15:05 | disposition home or self-care (01) | DRG 254 ==
LOC: ER 08:30 → OVERFLOW 16:15 → WEST WING 10-06 17:22
PROVIDERS: ADMIT Hospitalist; ATTEND Hospitalist
DX: K64.8 Other hemorrhoids (principal); F17.210 Nicotine dependence, cigarettes, uncomplicated; Z79.899 Other long term (current) drug therapy; Z98.891 History of uterine scar from previous surgery
CPT/HCPCS: 36415; 74177; 80048; 80053; 81001; 82270; 85025; 96361; 96374; 96375; 96376; 99291; G0378; J2405; J2470